=== PATIENT | male | born 1975 | race Caucasian/White ===

== ENCOUNTER → 2018-02-27 | Outpatient (CLI) | payer BC ==
--- NOTE | 2018-02-27 10:20 | US ---
EXAMINATION TYPE: US thyroid st tissue head/neck DATE OF EXAM: 02/27/2018 COMPARISON: NONE CLINICAL HISTORY: R22.1 SWELLING MASS LUMP IN NECK. Right neck/ submandibular palpable lump since las t night Area of palpable lump scanned. Submandibular gland appears enlarged and vascular = 3.5 x 3.8 x 2.4 c m. Contralateral images taken. No other discrete abnormalities. No enlarged lymph nodes. IMPRESSION: Hypervascular and asymmetrically enlarged right submandibular gland compatible with acut e sialoadenitis. CT could be performed for obstructing ductal calculus/sialolith.
== END | disposition home or self-care (01) ==
LOC: RADUSWWP 09:20
PROVIDERS: ATTEND Family Medicine
DX: K11.1 Hypertrophy of salivary gland (principal)
CPT/HCPCS: 76536

== ENCOUNTER → 2018-02-27 | Outpatient (CLI) | payer BC ==
--- NOTE | 2018-02-27 11:17 | CT ---
EXAMINATION TYPE: CT soft tissue neck w con DATE OF EXAM: 02/27/2018 COMPARISON: none HISTORY: Localized swelling, mass, lump of neck CT DLP: 601 mGycm CONTRAST: CT scan of the neck is performed with IV Contrast, patient injected with 100 ml mL of Isovue 300. Contrast enhanced CT of the neck was performed from the skull base through the lung apices. AIRWAY: The supraglottic, glottic, and subglottic portions of the airway appear patent and free of mass. SALIVARY GLANDS: Edema of the right submandibular gland and glandular enlargement and periglandular s tranding. The right submandibular gland measures 4.3 cm x 3.3 x 3.0 cm. No obstructing calculus is id entified at this time. Left submandibular gland and parotid glands are within normal limits. THYROID GLAND: No nodules or masses seen. LYMPH NODES: No adenopathy seen greater than 1cm. LUNG APICES: No nodule or mass is seen. OTHER: Vascular structures are patent. No significant degenerative change of the cervical spine. N o abscess seen. IMPRESSION: Sialoadenitis of the right submandibular gland without obstructing calculus.
== END | disposition home or self-care (01) ==
LOC: RADCTMAIN 10:16
PROVIDERS: ATTEND Physician Assistant
DX: K11.20 Sialoadenitis, unspecified (principal)
CPT/HCPCS: 70491; Q9967

== ENCOUNTER → 2019-05-13 | Outpatient (CLI) | payer BC ==
[2019-05-13 16:07] LABS: Basophils # (A) 0.1 k/uL (0-0.2); Basophils % (A) 1 %; Eosinophils # (A) 0.3 k/uL (0-0.7); Eosinophils % (A) 3 %; HCT 48.7 % (39.0-53.0); HGB 16.1 gm/dL (13.0-17.5); Lymphocytes # (A) 2.4 k/uL (1.0-4.8); Lymphocytes % (A) 28 %; MCH 29.6 pg (25.0-35.0); MCHC 33.1 g/dL (31.0-37.0); MCV 89.4 fL (80.0-100.0); Mean Platelet Volume 6.9; Monocytes # (A) 0.5 k/uL (0-1.0); Monocytes % (A) 6 %; Neutrophils # (A) 5.1 k/uL (1.3-7.7); Neutrophils % (A) 60 %; Platelet Count 255 k/uL (150-450); RBC 5.44 m/uL (4.30-5.90); RDW 13.1 % (11.5-15.5); WBC 8.5 k/uL (3.8-10.6)
[2019-05-13 17:27] LABS: Appearance,BF Bloody; Color,BF Red; Nucleated Cells, Body Fluid 14400 /uL; RBC, Body Fluid 490200 /uL
[2019-05-13 18:55] LABS: Mononuclear WBC,Body Fluid 11 %; Polynuclear WBC,Body Fluid 89 %
[2019-05-13 21:12] LABS: Erythrocyte Sedimentation Rate 13 mm/hr (0-15)
[2019-05-14 00:27] LABS: C Reactive Protein 3.6 mg/dL (0.0-0.8); Rheumatoid Factor, Qnt <4 IU/mL (0-15)
[2019-05-14 00:41] LABS: Streptolysin O Ab(ASO) 156 IU/mL (0-200)
[2019-05-14 11:15] LABS: HLA B27 NEGATIVE
== END | disposition home or self-care (01) ==
LOC: LABWHC1 14:45
PROVIDERS: ATTEND Orthopaedic Surgery
DX: M25.571 Pain in right ankle and joints of right foot (principal); M25.471 Effusion, right ankle; M79.671 Pain in right foot; M06.9 Rheumatoid arthritis, unspecified
CPT/HCPCS: 36415; 84443; 85025; 85652; 86038; 86060; 86140; 86431; 86618; 86812; 87070; 87075; 87205; 89050; 89060

== ENCOUNTER → 2024-06-04 | Outpatient (CLI) | payer BC ==
[2024-06-04 15:09] LABS: Color,BF Yellow
[2024-06-04 15:10] LABS: Appearance,BF Cloudy; Nucleated Cells, Body Fluid 3625 /uL; RBC, Body Fluid 5450 /uL
[2024-06-04 15:12] LABS: Mononuclear WBC,Body Fluid 52 %; Polynuclear WBC,Body Fluid 48 %; Total Cells Counted,Body Fluid 100
[2024-06-04 20:46] LABS: Synovial Fld Crystals None Seen (None Seen)
== END | disposition home or self-care (01) ==
LOC: LABPRL 11:54
PROVIDERS: ATTEND Orthopaedic Surgery
DX: M25.59 Pain in other specified joint (principal)
CPT/HCPCS: 89050; 89060

== ENCOUNTER → 2024-06-05 | Outpatient (CLI) | payer BC ==
[2024-06-05 15:28] LABS: C Reactive Protein 5.7 mg/dL (0.00-0.80); Uric Acid 8.6 mg/dL (3.7-8.7)
== END | disposition home or self-care (01) ==
LOC: LABWHC1 07:51
PROVIDERS: ATTEND Orthopaedic Surgery
DX: M79.662 Pain in left lower leg (principal)
CPT/HCPCS: 36415; 84550; 85652; 86140